=== PATIENT | male | born 1990 | race Caucasian/White ===

== ENCOUNTER 2020-11-27 16:22 | Emergency (ER) | payer OTHER ==
[~2020-11-27] VITALS: Ht 182.9 cm; Wt 79.5 kg
--- NOTE | 2020-11-27 16:41 | NUR ---
staff nuclear weapons officer: lavonne wright placed in triage
[2020-11-27] MEDS ORDERED: LIDOCAINE-MPF 1%, 5ML INFIL ONE (17:00)
--- NOTE | 2020-11-27 17:00 | NUR ---
VSS. ICE PLACED ON ELBOW. GF SUPPORTIVE AT BEDSIDE.
[2020-11-27] MEDS ORDERED: LIDOCAINE-MPF 1%, 2ML ONE (17:04)
--- NOTE | 2020-11-27 17:45 | NUR ---
PT DECLINES PAIN MEDS AT THIS TIME.
[2020-11-27] MEDS ORDERED: ETOMIDATE 20 MG/10 ML IVPush ONE (18:00)
[2020-11-27] MEDS ORDERED: FENTANYL PF 100 MCG/2ML IVPush ONE (18:00)
--- NOTE | 2020-11-27 18:09 | NUR ---
REPORT GIVEN TO AVIVA AVERY
[2020-11-27] MEDS ORDERED: FENTANYL PF 100 MCG/2ML ONE (18:14)
[2020-11-27] MEDS ORDERED: ETOMIDATE 20 MG/10 ML ONE (18:14)
--- NOTE | 2020-11-27 18:54 | NUR ---
LATE ENTRY FOR PROCEDURE EVENTS 1819 - 1849 DR ALTMAN AT BEDSIDE, PROCEDURE EXPLAINED AND QUESTIONS ANSWERED. PT MED WITH FENTANYL NOTED AND THEN GIVEN ETOMIDATE NOTED ON emr, REDUCTION OF RIGHT ELBOW ACCOMPLISHED W/O DIFFICULTY AND PT TOLLERAQTED WELL. PT NEVER DRIFTED OFF TO COMPLETE SLEEP BUT SEEMED TO TOLLERATE THE PROCEDURE WELL AND POST PROCEDURE VERBALIZES "IT WASN'T TOO BAD, JUST FELT LIKE SOMEONE PULLING ON MY ARM" PT VSS T/O. SPLINT APPLIED AND POST REDUCTION XRAY COMPLETED.
--- NOTE | 2020-11-27 18:57 | NUR ---
SBAR RPT TO AVIVA CRAIG.
--- NOTE | 2020-11-27 19:12 | NUR ---
REPORT FROM BENNIE CHICAS ASSUMED CARE OF PT, ELMER HERNDON AT BED SIDE FOR LAC REPAIR OF CHIN PT IN NAD AT THIS TIME
[2020-11-27] MEDS ORDERED: NEOSPORIN OINT. PKT 1 PACKET ONE (19:21)
[2020-11-27 19:22] VITALS: BP 121/80
--- NOTE | 2020-11-27 19:35 | NUR ---
joeg placed by matteo pierre pt in nad
[2020-11-27] MEDS ORDERED: DIPH,PERTUSS(ACELL),TET VAC/PF 0.5 ML IM-VACC ONE ×2 (20:11→20:30)
== END 2020-11-27 21:52 | disposition home or self-care (01) ==
LOC: ED 19:36
DX: S53.124A Posterior dislocation of right ulnohumeral joint, initial encounter (principal); S02.612A Fracture of condylar process of left mandible, initial encounter for closed fracture; S52.91XA Unspecified fracture of right forearm, initial encounter for closed fracture; R51.9 Headache, unspecified; Z88.5 Allergy status to narcotic agent; V19.88XA Pedal cyclist (driver) (passenger) injured in other specified transport accidents, initial encounter; Y93.89 Activity, other specified; Y92.830 Public park as the place of occurrence of the external cause; Y99.8 Other external cause status
CPT/HCPCS: 24600; 70486; 73070; 73080; 90471; 90715; 99152; 99285; J3010

== ENCOUNTER 2020-12-01 10:14 | Outpatient (CLI) | payer OTHER | END 2020-12-01 23:59 | disposition home or self-care (01) | LOC: CFH 10:14 | PROVIDERS: ATTEND Orthopaedic Surgery | DX: S52.121A Displaced fracture of head of right radius, initial encounter for closed fracture (principal); S52.041A Displaced fracture of coronoid process of right ulna, initial encounter for closed fracture; M79.89 Other specified soft tissue disorders; M25.421 Effusion, right elbow; X58.XXXA Exposure to other specified factors, initial encounter; Y93.89 Activity, other specified; Y92.89 Other specified places as the place of occurrence of the external cause; Y99.8 Other external cause status ==